=== PATIENT | male | born 1990 | race Hispanic/Latino ===

== ENCOUNTER → 2018-04-19 | Outpatient (CLI) | payer OTHER ==
--- NOTE | 2018-04-19 15:45 | Diagnostic Imaging Report ---
EXAMINATION: CT of the abdomen and pelvis without contrast. TECHNIQUE: Spiral CT images of the abdomen and pelvis were performed from the lung bases to the lesser trochanters. No intravenous contrast was given per renal stone protocol. Coronal and sagittal reformatted images were obtained. COMPARISON: None. CLINICAL HISTORY:Hematuria DISCUSSION: ABSENCE OF INTRAVENOUS CONTRAST DECREASES SENSITIVITY FOR DETECTION OF FOCAL LESIONS AND VASCULAR PATHOLOGY. ABDOMEN/PELVIS: LOWER THORAX: Unremarkable. HEPATOBILIARY:No focal hepatic lesions. No biliary ductal dilation. The gallbladder is normal. SPLEEN: No splenomegaly. Small splenule adjacent to the lower pole. PANCREAS: No focal masses or ductal dilatation. Partial fatty replacement of the head and proximal body. ADRENALS: No adrenal nodules. KIDNEYS/URETERS: Punctate nonobstructing left interpolar renal calculus. Fullness or distention of the distal left ureter just proximal to the ureterovesical junction seen on series 3 image 156. No right renal or ureteral calculi. PELVIC ORGANS/BLADDER: Urinary bladder is unremarkable. PERITONEUM/RETROPERITONEUM: No ascites. No pneumoperitoneum. LYMPH NODES: No pelvic sidewall, retroperitoneal, or mesenteric lymphadenopathy. VESSELS: Limited evaluation without intravenous contrast. The abdominal aorta is nonaneurysmal. GI TRACT: The large bowel shows no evidence of distention or wall thickening. The large bowel is arch likely collapsed and poorly evaluated along the distal aspect. The appendix is normal. There is no small bowel dilatation to suggest obstruction. BONES AND SOFT TISSUES: No osseous destructive lesions. Bone island right femoral head and left anterior acetabulum. Bone island right iliac wing. Healing fractures of the right lateral seventh, eighth, and ninth ribs. No focal soft tissue abnormalities. IMPRESSION: Punctate nonobstructing left renal calculus. Apparent fullness of the distal left ureter, just proximal to the ureterovesical junction may be due to inseparable adjacent pelvic venous structure or lymph node, though ureteral distention with blood clot is an additional consideration in the setting of hematuria. Mass lesion is unlikely in a patient of this age; however, further evaluation with CT urogram is suggested. Signed by: Dr. Venkat Shrestha M.D. on 04/19/2018 3:42 PM
== END ==
LOC: CT 14:48
PROVIDERS: ATTEND Family Medicine
DX: R31.9 Hematuria, unspecified (principal); R10.32 Left lower quadrant pain; N20.0 Calculus of kidney; Z87.442 Personal history of urinary calculi
CPT/HCPCS: 74176